=== PATIENT | female | born 1975 | race Caucasian/White ===

== ENCOUNTER 2020-09-22 17:27 | Outpatient (CLI) | payer OTHER, SELFPAY | END 2020-09-22 17:28 | disposition home or self-care (01) | LOC: ANHCOVIDVC 17:27 | PROVIDERS: PCP Family Medicine | DX: Z23 Encounter for immunization (principal) | CPT/HCPCS: 0001A; 91300 ==

== ENCOUNTER 2020-10-13 17:26 | Outpatient (CLI) | payer OTHER, SELFPAY | END 2020-10-13 17:27 | disposition home or self-care (01) | LOC: ANHCOVIDVC 17:26 | PROVIDERS: PCP Family Medicine | DX: Z23 Encounter for immunization (principal) | CPT/HCPCS: 0002A; 91300 ==